=== PATIENT | male | born 1985 | race Caucasian/White ===

== ENCOUNTER 2017-06-09 17:08 | Emergency (ER) | payer OTHER ==
[~2017-06-09] VITALS: Ht 172.7 cm; Wt 86.2 kg
== END 2017-06-09 18:59 | disposition home or self-care (01) ==
LOC: ED 17:08
DX: S50.812A Abrasion of left forearm, initial encounter (principal); S20.311A Abrasion of right front wall of thorax, initial encounter; V28.4XXA Motorcycle driver injured in noncollision transport accident in traffic accident, initial encounter
CPT/HCPCS: 71020; 72170; 80048; 85025; 99283; G0480